=== PATIENT | male | born 1960 | race African-American/Black ===

== ENCOUNTER → 2016-07-11 | Outpatient (CLI) | payer OTHER ==
[2015-03-06 19:20] VITALS: BP 150/80
[~2016-07-11] MED LIST: AMLO5TAB2 PO; HYDR12.58 PO; OXYC-244 PO; PRED1TAB3 PO; PROAIR HFA8.5 GM IH; TIOT18CA IH
--- NOTE | 2016-07-11 16:23 | KCIC ---
PROCEDURE Two-view chest HISTORY Worsening shortness of breath for 1 month. COMPARISON March 06, 2016. FINDINGS Cardiac silhouette not enlarged. No evidence of pneumothorax. No pleural effusion. No focal airspace consolidation. IMPRESSION No active disease in the chest. Electronically signed by: José Miguel Sanchez MD (Jul 11, 2016 16:21:50)
== END | disposition home or self-care (01) ==
LOC: KCIC 15:20
PROVIDERS: ATTEND Internal Medicine Pulmonary Disease
DX: R06.02 Shortness of breath (principal)
CPT/HCPCS: 71020

== ENCOUNTER → 2016-07-31 | Outpatient (CLI) | payer OTHER ==
[2015-03-06 19:20] VITALS: BP 150/80
--- NOTE | 2016-08-01 11:32 | RESP ---
DATE OF SERVICE: 07/31/2016 The patient underwent full pulmonary function testing on 07/31/2016. The FEV1 to FVC ratio was 42%; FEV1 was 0.94 liters, FVC was 2.24 liters. FEV1 was 28% of predicted. There was a 50% bronchodilator response. Diffusion capacity was preserved. Water capacity was 57% of predicted. IMPRESSION: 1. Severe air flow limitation. 2. Significant bronchodilator response. 3. Preserved diffusion capacity. HECTOR SALINAS MD DR: JUAN JOSE/amadeo JOB#: [id number] / [id number] KOFFI Davis MD
== END | disposition home or self-care (01) ==
LOC: PF 10:07
PROVIDERS: ATTEND Internal Medicine Pulmonary Disease
DX: R06.02 Shortness of breath (principal)
CPT/HCPCS: 94060; 94729

== ENCOUNTER → 2016-12-31 | Outpatient (CLI) | payer OTHER ==
[2015-03-06 19:20] VITALS: BP 150/80
[~2016-12-31] MED LIST changes: -OXYC-244 PO; +OXYC-327 PO
--- NOTE | 2016-12-31 14:07 | KCIC ---
PA and lateral chest radiograph. History: Cough and shortness air for 2 days. Comparison: July 11, 2016. Findings: Cardiomediastinal silhouette is within normal limits for size. No pneumothorax or pleural effusion is identified. No acute consolidation is seen. Small nodule is seen involving the right midlung on the frontal view measuring about 1.2 cm; this is not well seen on previous study Impression: 1. Right lung nodule. Recommend CT chest without intravenous contrast for further evaluation. Electronically signed by: José Miguel Vera MD (12/31/2016 2:04 PM) [place] [id number]
== END | disposition home or self-care (01) ==
LOC: KCIC 13:40
PROVIDERS: ATTEND Physician Assistant
DX: R05 Cough (principal); R91.1 Solitary pulmonary nodule
CPT/HCPCS: 71020

== ENCOUNTER → 2017-04-08 | Outpatient (CLI) | payer OTHER | END | disposition home or self-care (01) | LOC: KCIC 10:26 | DX: J44.9 Chronic obstructive pulmonary disease, unspecified (principal); Z87.891 Personal history of nicotine dependence | CPT/HCPCS: 71046 ==

== ENCOUNTER → 2017-04-29 | Outpatient (CLI) | payer OTHER | END | disposition home or self-care (01) | LOC: KCIC 09:08 | DX: M25.761 Osteophyte, right knee (principal); M25.461 Effusion, right knee | CPT/HCPCS: 73560 ==

== ENCOUNTER → 2020-01-16 | Outpatient (CLI) | payer OTHER ==
[2015-03-06 19:20] VITALS: BP 150/80
[~2020-01-16] MED LIST changes: +ALBU2.5V8 IH; +AMLO-186 PO; -AMLO5TAB2 PO; -OXYC-327 PO; +OXYC1TAB19 PO; -PROAIR HFA8.5 GM IH
--- NOTE | 2020-01-16 13:59 | KCIC ---
PA and lateral chest x-ray compared to similar exam dated April 08, 2017 for shortness of breath. FINDINGS: The lungs are clear. The cardiomediastinum is grossly unremarkable. No significant soft tissue or osseous abnormalities. IMPRESSION: 1. Normal chest x-ray. Electronically signed by: Gary Salas MD (01/16/2020 1:56 PM) [id number]
== END ==
LOC: KCIC 12:54
PROVIDERS: ATTEND Internal Medicine Pulmonary Disease
DX: R06.02 Shortness of breath (principal)
CPT/HCPCS: 71046

== ENCOUNTER → 2020-01-23 | Outpatient (CLI) | payer OTHER ==
[2015-03-06 19:20] VITALS: BP 150/80
--- NOTE | 2020-01-23 11:59 | RAD ---
MR#: [id number] Date of Study: 01/23/2020 Ordering Physician: CELESTINE ESPINOZA, Referring Physician: FELIZ SOLIMAN Tech: APPROVED REPORT Test Type: Exercise Stress Nurse/Tech: Suma Zimmer RN Test Indications: shortness of air Cardiac History: hypertension, former smoker Medications: see EHR Medical History: see EHR Resting ECG: SR Resting Heart Rate: 73 bpm Resting Blood Pressure: 131/77mmHg Pretest Chest Pain: None Nurse/Tech Notes S1,S2 lungs diminshed in the bases. Stress Symptoms Fatigue POST EXERCISE Reason for Termination: Reached target heart rate, Fatigue Target HR: Yes Max HR: 199 bpm 146% of Maximum Predicted HR: 136 bpm Exercise duration: 7:17 min:sec, 3 Stage Exercise capacity: 10.0METs Max Blood Pressure: 158/89mmHg Blood Pressure response to exercise: Normal blood pressure response during stress. Heart Rate response to exercise: WNL Chest Pain: No. Arrhythmia: No. ST Change: No. INTERPRETATION Stress EKG Conclusion: NO ACUTE FINDINGS Other Information Quality:Poor Overall Exercise Capacity: Average Risk Assessment: Low Risk Conclusion 1. Normal resting EKG 2. Average exercise capacity at 7.0 Mets achieved. 3. Normal BP/HR response with stress. 4. Stress EKG limited by motion artifact, but within these limitations, no acute findings. 5. Low risk study overall Signed by : Krzysztof Holm, Electronically Approved : 01/23/2020 11:58:35
== END ==
LOC: NM 07:53
PROVIDERS: ATTEND Internal Medicine Pulmonary Disease
DX: I10 Essential (primary) hypertension (principal); Z87.891 Personal history of nicotine dependence
CPT/HCPCS: 93017

== ENCOUNTER → 2020-02-06 | Outpatient (CLI) | payer OTHER ==
[2015-03-06 19:20] VITALS: BP 150/80
--- NOTE | 2020-02-07 16:34 | CARD ---
MR#: [id number] Date of Study: 02/06/2020 Ordering Physician: CELESTINE ESPINOZA, Referring Physician: CELESTINE ESPINOZA, Tech: Ana María Angulo APPROVED REPORT EXAM: Two-dimensional and M-mode echocardiogram with Doppler and color Doppler. Other Information Quality : AverageHR: 78bpm INDICATION Dyspnea RISK FACTORS Hypertension Hyperlipidemia Asthma 2D DIMENSIONS RVDd3.5 (2.9-3.5cm)Left Atrium(2D)2.7 (1.6-4.0cm) IVSd1.0 (0.7-1.1cm)Aortic Root(2D)3.2 (2.0-3.7cm) LVDd5.5 (3.9-5.9cm)LVOT Diameter2.1 (1.8-2.4cm) PWd1.0 (0.7-1.1cm)LVDs2.6 (2.5-4.0cm) FS (%) 52.6 %SV121.6 ml Aortic Valve AoV Peak Sorin.145.7cm/sAoV VTI24.8cm AO Peak GR.8.5mmHgLVOT Peak Sorin.144.0cm/s LVOT VTI 25.87cmAO Mean GR.4mmHg SUSAN (VMAX)2.24yq6PDT (VTI)3.45cm2 Mitral Valve MV E Oanbqhfx70.3cm/sMV DECEL AWJX225io MV A Daciqwvk15.4cm/sMV QDA71ra E/A Ratio1.1MVA (PHT)2.98cm2 TDI E/Lateral E'6.3E/Medial E'6.0 Pulmonary Valve PV Peak Oavifsjz725.1cm/sPV Peak Grad.4mmHg Tricuspid Valve TR P. Ovmabzfz097at/sRAP QXARGFRZ1mbPu TR Peak Gr.87dxFjUEUU18xeFg Pulmonary Vein S1 Nwvpagzu65.7cm/sD2 Evtzlspw66.1cm/s PVa coecwzin331tbdv LEFT VENTRICLE The left ventricle is normal size. There is borderline to mild concentric left ventricular hypertroph y. The left ventricular systolic function is normal and the ejection fraction is within normal range. The Ejection Fraction is 55-60%. There is normal LV segmental wall motion. Transmitral Doppler flow pattern is Grade II-pseudonormal filling dynamics. RIGHT VENTRICLE The right ventricle is normal size. There is normal right ventricular wall thickness. The right ventr icular systolic function is normal. ATRIA The left atrium size is normal. The right atrium size is normal. The interatrial septum is intact wit h no evidence for an atrial septal defect or patent foramen ovale as noted on 2-D or Doppler imaging. AORTIC VALVE The aortic valve is thickened but opens well. Doppler and Color Flow revealed trace aortic regurgitat ion. There is no significant aortic valvular stenosis. Calculated aortic valve area is 3.34 cm2 with maximum pressure gradient of 9 mmHg and mean pressure gradient of 4 mmHg. MITRAL VALVE The mitral valve is normal in structure and function. There is no evidence of mitral valve prolapse. There is no mitral valve stenosis. Doppler and Color-flow revealed trace mitral regurgitation. TRICUSPID VALVE The tricuspid valve is normal in structure and function. Doppler and Color Flow revealed trace tricus pid regurgitation with an estimated PAP of 30 mmHg. There is no tricuspid valve stenosis. PULMONIC VALVE The pulmonic valve is not well visualized. Doppler and Color Flow revealed trace pulmonic valvular re gurgitation. GREAT VESSELS The aortic root is normal in size. The ascending aorta is normal in size. The IVC is normal in size a nd collapses >50% with inspiration. PERICARDIAL EFFUSION There is no evidence of significant pericardial effusion. Critical Notification Critical Value: No <Conclusion> The left ventricle is normal size. The left ventricular systolic function is normal and the ejection fraction is within normal range. The Ejection Fraction is 55-60%. There is borderline to mild concentric left ventricular hypertrophy. Doppler and Color Flow revealed trace aortic regurgitation. There is no significant aortic valvular stenosis. Doppler and Color-flow revealed trace mitral regurgitation. Doppler and Color Flow revealed trace tricuspid regurgitation with an estimated PAP of 30 mmHg. Signed by : Swapnil Keene MD Electronically Approved : 02/07/2020 16:33:55
== END ==
LOC: ECHO 08:58
PROVIDERS: ATTEND Internal Medicine Pulmonary Disease
DX: I51.7 Cardiomegaly (principal)
CPT/HCPCS: 93306

== ENCOUNTER → 2020-05-09 | Outpatient (CLI) | payer OTHER ==
[2015-03-06 19:20] VITALS: BP 150/80
--- NOTE | 2020-05-09 19:41 | KCIC ---
Exam: Right RIBS 2 views INDICATION: Right flank pain, fall 4 days ago TECHNIQUE: Frontal and oblique views Comparisons: Radiograph 01/16/2020 FINDINGS: No displaced rib fractures are identified. Visualized soft tissues are unremarkable. IMPRESSION: No displaced rib fractures are identified. Electronically signed by: Camila Castro MD (05/09/2020 7:39 PM) [facility]
--- NOTE | 2020-05-09 19:47 | KCIC ---
XR SHOULDER_RIGHT 2+ VIEWS 05/09/2020 1:57 PM INDICATION: Joint pain with history of prior rotator cuff surgery. COMPARISON: None available. TECHNIQUE: 3 views the right shoulder are provided. FINDINGS/ IMPRESSION: 1. There is an ossific body along the superolateral margin of the humeral head measuring 6 mm as may be seen with calcific tendinitis. 2. Sclerosis along the superolateral aspect of the humeral head could reflect chronic rotator cuff ar thropathy. 3. Acromioclavicular and glenohumeral joints are intact. Acute fracture or dislocation is identified. Electronically signed by: Luna Ruelas MD (05/09/2020 7:45 PM) [facility]
== END ==
LOC: KCIC 13:45
PROVIDERS: ATTEND Family Medicine
DX: M25.511 Pain in right shoulder (principal); R07.81 Pleurodynia; R10.9 Unspecified abdominal pain
CPT/HCPCS: 71100; 73030